=== PATIENT | female | born 2000 | race Hispanic/Latino ===

== ENCOUNTER 2022-09-26 07:59 | Emergency (ER) | payer OTHER ==
[~2022-09-26] VITALS: Ht 160 cm; Wt 61.0 kg
[2022-09-26 09:49] LABS: URINE PREG TEST NEGATIVE (NEGATIVE)
[2022-09-26] MEDS ORDERED: CEFD300C41 PO (10:17)
[2022-09-26 10:20] VITALS: BP 118/56
[2022-09-26 11:17] LABS: GC DNA AMPLIFICATION NEGATIVE (NEGATIVE)
== END 2022-09-26 10:29 | disposition home or self-care (01) ==
LOC: M ED 07:59
DX: N39.0 Urinary tract infection, site not specified (principal); Z79.2 Long term (current) use of antibiotics